=== PATIENT | female | born 1965 | race Hispanic/Latino ===

== ENCOUNTER 2024-07-02 12:53 | Emergency (ER) | payer MEDICARE ==
[~2024-07-02] VITALS: Ht 167.6 cm; Wt 65.8 kg
[2024-07-02 12:55] VITALS: TEMP 97.6
[2024-07-02 14:23] LABS: BASOPHILS % 0.5 % (0.0-1.0); EOSINOPHILS # (AUTO) 0.2 (0.0-0.4); EOSINOPHILS % 2.6 % (0.0-6.0); HEMATOCRIT 40.7 % (34.2-44.1); HEMOGLOBIN 13.4 g/dL (12.0-16.0); LYMPHOCYTES % 31.9 % (18.0-39.1); MEAN CORPUSCULAR HEMOGLOBIN 29.5 pg (28-32); MEAN CORPUSCULAR HGB CONC 32.9 g/dL (31-35); MEAN CORPUSCULAR VOLUME 89.6 fL (81-99); MONOCYTES # (AUTO) 0.6 (0.2-0.8); MONOCYTES % 9.2 % (4.4-11.3); NEUTROPHILS # (AUTO) 3.5 (2.1-6.9); NEUTROPHILS % 55.6 % (38.7-80.0); PLATELET COUNT 309 x10e3/uL (140-360); RED BLOOD COUNT 4.54 x10e6/uL (3.6-5.1); RED CELL DISTRIBUTION WIDTH 13.6 % (11.7-14.4); WHITE BLOOD COUNT 6.21 x10e3/uL (4.8-10.8)
[2024-07-02] MEDS ORDERED: SODIUM CHLORIDE 0.9% 500ML 1,000 ML ONE (14:27)
[2024-07-02] MEDS: KETOROLAC TROMETHAMINE 30 MG/ML VIAL IV STA (14:35)
[2024-07-02] MEDS: DIPHENHYDRAMINE HCL INJ 50 MG/ML VIAL IV ONE (14:35)
[2024-07-02] MEDS: SODIUM CHLORIDE 0.9% 1000ML 1,000 ML IV STA (14:36)
[2024-07-02] MEDS: METOCLOPRAMIDE HCL 10 MG/2ML VIAL IV ONE (14:36)
[2024-07-02 14:41] LABS: INR 0.85; PROTHROMBIN TIME 12.2 seconds (11.9-14.5)
[2024-07-02 14:42] LABS: PARTIAL THROMBOPLASTIN TIME 28.3 seconds (23.8-35.5)
[2024-07-02 14:50] LABS: ALBUMIN 4.2 g/dL (3.5-5.0); ALBUMIN/GLOBULIN RATIO 1.2 (0.8-2.0); ANION GAP 14.3 mmol/L (8-16); BILIRUBIN,TOTAL 0.4 mg/dL (0.2-1.2); CALCIUM 9.8 mg/dL (8.4-10.2); CREATININE, SERUM 0.67 mg/dL (0.57-1.11); MAGNESIUM 1.9 MG/DL (1.3-2.1); POTASSIUM 4.3 mmol/L (3.5-5.1); TOTAL PROTEIN 7.6 g/dL (6.5-8.1)
[2024-07-02 15:03] LABS: TROPONIN I 0.006 ng/mL (0-0.300)
[2024-07-02] MEDS ORDERED: MEDROL4 M2 PO (16:37)
[2024-07-02] MEDS ORDERED: VENTOLIN HFA18 GM INH (16:37)
[2024-07-02] MEDS ORDERED: AZITHROMYCIN250 MG PO (16:37)
[2024-07-02 17:00] VITALS: PULSE 84; RESP 18; O2SAT 100
[2024-07-06] MEDS ORDERED: MELOXICAM7.5 MG PO (11:06)
[2024-07-06] MEDS ORDERED: AMITRIPTYLINE H10 MG PO (11:06)
[2024-07-06] MEDS ORDERED: CLONAZEPAM0.5 MG PO (11:06)
== END 2024-07-02 17:06 | disposition home or self-care (01) ==
LOC: ER 13:01
DX: R51.9 Headache, unspecified (principal); J40 Bronchitis, not specified as acute or chronic; R05.9 Cough, unspecified; R20.2 Paresthesia of skin; J44.9 Chronic obstructive pulmonary disease, unspecified; M32.9 Systemic lupus erythematosus, unspecified; K21.9 Gastro-esophageal reflux disease without esophagitis; F17.210 Nicotine dependence, cigarettes, uncomplicated
CPT/HCPCS: 36415; 70450; 71045; 80053; 83735; 84484; 85025; 85610; 85730; 93005; 99284; J1200; J1885; J2765; J7040

== ENCOUNTER → 2024-07-13 | Day surgery (SDC) | payer MEDICARE, OTHER ==
[2024-07-06 16:01] LABS: BASOPHILS % 0.3 % (0.0-1.0); EOSINOPHILS # (AUTO) 0.2 (0.0-0.4); EOSINOPHILS % 1.7 % (0.0-6.0); HEMATOCRIT 38.1 % (34.2-44.1); HEMOGLOBIN 12.4 g/dL (12.0-16.0); LYMPHOCYTES # (AUTO) 1.9 (1.0-3.2); LYMPHOCYTES % 21.3 % (18.0-39.1); MEAN CORPUSCULAR HEMOGLOBIN 29.7 pg (28-32); MEAN CORPUSCULAR HGB CONC 32.5 g/dL (31-35); MEAN CORPUSCULAR VOLUME 91.4 fL (81-99); MONOCYTES # (AUTO) 0.8 (0.2-0.8); MONOCYTES % 9.2 % (4.4-11.3); NEUTROPHILS # (AUTO) 5.9 (2.1-6.9); NEUTROPHILS % 67.3 % (38.7-80.0); PLATELET COUNT 273 x10e3/uL (140-360); RED BLOOD COUNT 4.17 x10e6/uL (3.6-5.1); RED CELL DISTRIBUTION WIDTH 13.8 % (11.7-14.4); WHITE BLOOD COUNT 8.72 x10e3/uL (4.8-10.8)
[~2024-07-13] MED LIST: ACETAMINOPHEN 1000 MG/100 ML 100 ML IV ONE; ALBUTEROL/IPRATROPIUM 3 ML NEB ONE; ALBUTEROL1.25 MG/3 NEB; AMITRIPTYLINE H10 MG PO; AZITHROMYCIN250 MG PO; CLONAZEPAM0.5 MG PO; DEXAMETHASONE SOD PHOS INJ 4 MG/ML SDV ONE; EPHEDRINE SULFATE INJ 50 MG/ML VIAL ONE; FENTANYL CITRATE/PF 100MCG/2 ML INJ ONE; HYDROCODONE/APAP 7.5MG-325MG 1 EA TAB ONE; LIDOCAINE HCL 2% LOCAL INJ 5 ML SDV VIAL INJ ONE; MAGNESIUM SULFATE 2GM/50ML IV ONE; MEDROL4 M2 PO; MELOXICAM7.5 MG PO; ONDANSETRON HCL INJ 2MG/ML 2ML 2 MG/ML VIAL ONE; PROPOFOL IV EMULSION 10 MG/ML 20 ML VIAL ONE; VENTOLIN HFA18 GM INH
[2024-07-13] MEDS: LACTATED RINGER'S 1,000 ML ONE (13:45)
[2024-07-13 16:15] VITALS: TEMP 97
[2024-07-13 17:30] VITALS: BP 135/89; PULSE 75; RESP 15; O2SAT 99
== END | disposition home or self-care (01) ==
LOC: OR 12:47
PROVIDERS: ATTEND Obstetrics & Gynecology
DX: N39.3 Stress incontinence (female) (male) (principal); N32.81 Overactive bladder; J44.9 Chronic obstructive pulmonary disease, unspecified; R05.9 Cough, unspecified; F41.9 Anxiety disorder, unspecified; F32.A Depression, unspecified; F17.210 Nicotine dependence, cigarettes, uncomplicated; Z01.810 Encounter for preprocedural cardiovascular examination; Z01.812 Encounter for preprocedural laboratory examination; Z01.818 Encounter for other preprocedural examination; Z79.1 Long term (current) use of non-steroidal anti-inflammatories (NSAID); Z79.899 Other long term (current) drug therapy; Z87.01 Personal history of pneumonia (recurrent); Z86.69 Personal history of other diseases of the nervous system and sense organs
CPT/HCPCS: 36415; 57288; 71046; 85025; 93005; C1781; J0131; J0690; J1100; J2003; J2405; J2704; J3010; J3475; J7121

== ENCOUNTER 2024-07-18 20:05 | Emergency (ER) | payer MEDICARE, OTHER ==
[~2024-07-18] VITALS: Ht 167.6 cm; Wt 77.1 kg
[~2024-07-18 20:05] MED LIST changes: -ACETAMINOPHEN 1000 MG/100 ML 100 ML IV ONE; -ALBUTEROL/IPRATROPIUM 3 ML NEB ONE; -ALBUTEROL1.25 MG/3 NEB; -DEXAMETHASONE SOD PHOS INJ 4 MG/ML SDV ONE; -EPHEDRINE SULFATE INJ 50 MG/ML VIAL ONE; -FENTANYL CITRATE/PF 100MCG/2 ML INJ ONE; -HYDROCODONE/APAP 7.5MG-325MG 1 EA TAB ONE; -LIDOCAINE HCL 2% LOCAL INJ 5 ML SDV VIAL INJ ONE; -MAGNESIUM SULFATE 2GM/50ML IV ONE; -ONDANSETRON HCL INJ 2MG/ML 2ML 2 MG/ML VIAL ONE; -PROPOFOL IV EMULSION 10 MG/ML 20 ML VIAL ONE
[2024-07-18 20:32] LABS: BASOPHILS % 0.5 % (0.0-1.0); EOSINOPHILS # (AUTO) 0.2 (0.0-0.4); EOSINOPHILS % 2.2 % (0.0-6.0); HEMATOCRIT 36.8 % (34.2-44.1); HEMOGLOBIN 12.2 g/dL (12.0-16.0); LYMPHOCYTES # (AUTO) 2.5 (1.0-3.2); LYMPHOCYTES % 32.5 % (18.0-39.1); MEAN CORPUSCULAR HEMOGLOBIN 30.7 pg (28-32); MEAN CORPUSCULAR HGB CONC 33.2 g/dL (31-35); MEAN CORPUSCULAR VOLUME 92.7 fL (81-99); MONOCYTES # (AUTO) 0.6 (0.2-0.8); NEUTROPHILS # (AUTO) 4.4 (2.1-6.9); NEUTROPHILS % 56.4 % (38.7-80.0); PLATELET COUNT 254 x10e3/uL (140-360); RED BLOOD COUNT 3.97 x10e6/uL (3.6-5.1); RED CELL DISTRIBUTION WIDTH 14.5 % (11.7-14.4); WHITE BLOOD COUNT 7.72 x10e3/uL (4.8-10.8)
[2024-07-18 20:48] LABS: CORONAVIRUS COVID-19 AG NEGATIVE (NEGATIVE); INFLUENZA A AG NEGATIVE (NEGATIVE); INFLUENZA B AG NEGATIVE (NEGATIVE)
[2024-07-18 20:53] LABS: ALBUMIN 3.9 g/dL (3.5-5.0); ALBUMIN/GLOBULIN RATIO 1.3 (0.8-2.0); ANION GAP 14.7 mmol/L (8-16); BILIRUBIN,TOTAL 0.2 mg/dL (0.2-1.2); CREATININE, SERUM 0.83 mg/dL (0.57-1.11); POTASSIUM 4.7 mmol/L (3.5-5.1); TOTAL PROTEIN 6.9 g/dL (6.5-8.1)
[2024-07-18 21:12] VITALS: PULSE 92; RESP 20; O2SAT 94
[2024-07-18] MEDS: ALBUTEROL SULF 0.083% NEB SOLN 3 ML NEB NEB STA (21:12)
[2024-07-18] MEDS: IPRATROPIUM BROMIDE 0.02% 2.5 ML NEB NEB ONE (21:12)
[2024-07-18] MEDS: METHYLPREDNISOLONE SOD SUCC 125 MG/2ML VIAL IV ONE (21:23)
[2024-07-18 21:52] VITALS: PULSE 95; RESP 20
[2024-07-18] MEDS ORDERED: ALBUTEROL1.25 MG/3 NEB (22:03)
[2024-07-18] MEDS ORDERED: AZITHROMYCIN250 MG PO (22:03)
[2024-07-18] MEDS ORDERED: MEDROL4 M2 PO (22:03)
[2024-07-18 22:24] VITALS: PULSE 88; RESP 18; TEMP 98; O2SAT 92
== END 2024-07-18 23:03 | disposition home or self-care (01) ==
LOC: ER 20:13
DX: R06.02 Shortness of breath (principal); J44.1 Chronic obstructive pulmonary disease with (acute) exacerbation; J40 Bronchitis, not specified as acute or chronic; M32.9 Systemic lupus erythematosus, unspecified; K21.9 Gastro-esophageal reflux disease without esophagitis; Z11.52 Encounter for screening for COVID-19; F17.210 Nicotine dependence, cigarettes, uncomplicated
CPT/HCPCS: 36415; 71045; 80053; 83880; 84484; 85025; 87428; 93005; 94640; 94799; 99284; J2919